=== PATIENT | male | born 1935 | race Caucasian/White ===

== ENCOUNTER 2019-01-14 17:01 | Emergency (ER) | payer OTHER, MEDICARE ==
[2019-01-14 17:07] VITALS: BP 145/86
--- NOTE | 2019-01-14 17:29 | EDPHY ---
H & P Stated Complaint: Left calf/foot swelling since this AM,, recent travel. - Personal History Current Tetanus Diphtheria and Acellular Pertussis (TDAP): Yes - Medical/Surgical History Hx Asthma: No Hx Chronic Respiratory Disease: No Hx Diabetes: No Hx Cardiac Disease: No Hx Renal Disease: No Hx Cirrhosis: No Hx Alcoholism: No Hx HIV/AIDS: No Hx Splenectomy or Spleen Trauma: No Other PMH: Denies. - Social History Smoking Status: Never smoked Time Seen by Provider: 01/14/19 17:15 HPI/ROS: CHIEF COMPLAINT: Left calf pain and swelling times 24 hr HISTORY OF PRESENT ILLNESS: 83-year-old male driving from [place] to [place] in the emergency department complaining of left calf pain and swelling for the past 24 hr. No discoloration. No prior VTE history. Does have prior remote history of varicose vein surgery in [place]. No chest pain. No dyspnea. No trauma no fall. Able to bear full weight. PRIMARY CARE PROVIDER: In [place] REVIEW OF SYSTEMS: 10 systems reviewed and negative with the exception of the elements mentioned in the history of present illness PAST MEDICAL & SURGICAL HISTORY: No pertinent medical or surgical history SOCIAL HISTORY: Nonsmoker. . No drug use. Lives in [place]. On a road trip from [place] to [place] eventually back to [place]. PHYSICAL EXAM (Prior to examination, patient consented to physical exam, hands were washed and my usual and customary physical exam procedures followed) 1) GENERAL: Well-developed, well-nourished, alert and oriented. Appears to be in no acute distress. 2) HEAD: Normocephalic, atraumatic 3) HEENT: Pupils equal, round, reactive to light bilaterally. Sclera anicteric. 4) NECK: Full range of motion, no meningeal signs. 5) LUNGS: Clear auscultation bilaterally, no wheezes, no rhonchi, no retractions. 6) HEART: Regular rate and rhythm, no murmur, no heave, no gallop. 7) ABDOMEN: No guarding, no rebound, no focal tenderness, 8) MUSCULOSKELETAL: Left lower extremity: Tender to palpation left posterior calf with no palpable cord negative Homans. Soft compartments. DP PT pulses present and brisk distally. Normal coloration temperature distally. Moving all extremities, no focal areas of tenderness, no obvious trauma. No peripheral edema or discoloration. 9) BACK: No step-off, no obvious trauma, no visual or palpable abnormality. 10) SKIN: No rash, no petechiae. 11) Psychiatric: Patient is oriented X 3, there is no agitation. 12 DIFFERENTIAL DIAGNOSIS: In no particular order including but not limited to compartment syndrome, DVT, superficial phlebitis (Rell Ramires) Constitutional: Initial Vital Signs Temperature (C) 36.8 C 01/14/19 17:02 Heart Rate 73 01/14/19 17:02 Respiratory Rate 16 01/14/19 17:02 Blood Pressure 145/86 H 01/14/19 17:02 O2 Sat (%) 95 01/14/19 17:02 O2 Delivery Mode Room Air Allergies/Adverse Reactions: guaifenesin [From Humibid] Allergy (Verified 01/14/19 17:07) Home Medications: Medication Instructions Recorded Acyclovir 01/14/19 Gabapentin 01/14/19 Levothyroxine 01/14/19 Lovastatin 01/14/19 Medical Decision Making - Diagnostics Imaging Results: Images reviewed myself (Rell Ramires) ED Course/Re-evaluation: 6:15 p.m.: Re-evaluation. Discussed with the patient his study which is negative for DVT. He is noted to have a clot in the superficial saphenous vein on the left thigh. There are no overlying skin changes. On initial and on re- evaluation patient has no discoloration to his lower extremity, is normal color normal temperature, brisk pulses and symmetrical pulses, brisk capillary refill. Doubt compartment syndrome. Doubt arterial occlusion. Doubt PE. At this time I think the patient can be discharged home with close follow-up. Had a lengthy discussion with the patient his . Definitely if he develops any new or worsening symptoms in seek immediate medical attention. Given copies of his ultrasound report as he is traveling through the [facility]. Care of patient under supervision of secondary supervising physician Dr Brower . Patient feels comfortable being discharged. All questions and concerns addressed by myself. Patient given my usual and customary discharge precautions and instructions regarding their clinical impression. (Rell Ramires ) Other Provider: The patient was evaluated and managed by the Physician [employer] Service Attendant. My co- signature indicates that I have reviewed this chart and I agree with the findings and plan of care as documented. I am the secondary supervising physician. (Nivia Brower) Departure - Departure Disposition: Home, Routine, Self-Care Clinical Impression: Superficial vein thrombosis Condition: Good Instructions: Superficial Thrombophlebitis (ED) Additional Instructions: If you develop new or worsening symptoms, if you develop discoloration, worsening pain, or any other symptoms that concern you please seek immediate medical attention at the closest medical facility. Recommend you place warm compresses on your thigh. Referrals: Payton Weldon MD [Medical Doctor] - 2-3 days, call for appt.
== END 2019-01-14 18:33 | disposition home or self-care (01) ==
DX: I80.02 Phlebitis and thrombophlebitis of superficial vessels of left lower extremity (principal)